=== PATIENT | female | born 2000 | race Caucasian/White ===

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

== ENCOUNTER 2021-11-09 18:48 | Emergency (ER) | payer BC ==
[~2021-11-09] VITALS: Ht 157.5 cm; Wt 75.0 kg
[~2021-11-09 18:48] MED LIST: ATARAX50 MG PO; PREDNISONE20 MG PO
[2021-11-09 18:52] VITALS: BP 112/73; TEMP 98.6
[2021-11-09] MEDS ORDERED: CEPHALEXIN500 M1 PO (19:04)
[2021-11-09 19:14] VITALS: PULSE 82
== END 2021-11-09 19:16 | disposition home or self-care (01) ==
LOC: COL.ER 18:48
DX: O98.811 Other maternal infectious and parasitic diseases complicating pregnancy, first trimester (principal); L03.031 Cellulitis of right toe; Z3A.01 Less than 8 weeks gestation of pregnancy; Z28.310 Unvaccinated for COVID-19